=== PATIENT | male | born 1955 | race Caucasian/White ===

== ENCOUNTER 2020-12-25 06:02 | Day surgery (SDC) | payer MEDICARE ==
[2020-12-18 11:54] LABS: ALBUMIN 3.7 G/DL (3.4-5.0); ALBUMIN/GLOBULIN RATIO 1.1 (1.1-1.5); ALKALINE PHOSPHATASE 85 IU/L (46-116); BLOOD UREA NITROGEN 15 MG/DL (7-18); BUN/CREATININE RATIO 13.6 (5.4-32.0); CALCIUM 8.4 MG/DL (8.5-10.1); CHLORIDE 104 MMOL/L (99-107); PRE OP ALT 23 U/L (30-65); PRE OP ANION GAP 7 (8-16); PRE OP AST 21 U/L (10-37); PRE OP BILIRUB, TOTAL 0.5 MG/DL (0.0-1.0); PRE OP GLUCOSE 94 MG/DL (70-104); PRE OP POTASSIUM 3.9 MMOL/L (3.4-5.1); PRE OP SODIUM 139 MMOL/L (135-145); TOTAL CARBON DIOXIDE 27.6 MMOL/L (24-32); TOTAL PROTEIN 7.2 G/DL (6.4-8.2); eGFR 67 ML/MIN
[2020-12-18 11:59] LABS: BASOPHILS % (AUTO) 0.3 % (0-1); EOSINOPHILS # (AUTO) 0.1 X10'3 (0-0.9); EOSINOPHILS % (AUTO) 1.3 % (0-6); LYMPHOCYTES # (AUTO) 1.7 X10'3 (1.1-4.8); LYMPHOCYTES % (AUTO) 21.9 % (21-51); MEAN CORPUSCULAR HEMOGLOBIN 29.8 PG (27.0-31.0); MEAN CORPUSCULAR VOLUME 90.4 FL (78-98); MEAN PLATELET VOLUME 8.7 FL (7.4-10.4); MONOCYTES # (AUTO) 0.7 X10'3 (0-0.9); MONOCYTES % (AUTO) 8.9 % (2-12); NEUTROPHILS # (AUTO) 5.2 X10'3 (1.8-7.7); NEUTROPHILS % (AUTO) 67.6 % (42-75); PRE OP HEMATOCRIT 47.4 % (42.0-52.0); PRE OP HEMOGLOBIN 15.7 g/dL (14.0-17.9); PRE OP PLATELET COUNT 224 X10'3 (140-440); RED BLOOD COUNT 5.25 X10'6 (4.70-6.10)
[~2020-12-25] VITALS: Ht 180.3 cm; Wt 113.0 kg
[~2020-12-25 06:02] MED LIST: BETA1TAB20 PO; GLUC-221 PO; NAPR220C62 PO; TEST200V10 IM; cefazolin/dext.iso 2gm/100ml 100 ML IV ONE; famotidine 20mg tablet PO ONE; ringers solution, lacted 1,000 ML IV SCH
[2020-12-25] MEDS ORDERED: BUPIVAcaine/PF 2.5 mg/ml (0.25%) 30ml vial ONE (06:43)
[2020-12-25 07:14] VITALS: BP 144/94
[2020-12-25] MEDS ORDERED: hydrALAZINE 20mg/ml inj. IV PRN (08:10)
[2020-12-25] MEDS ORDERED: meperidine/PF 25mg/ml syringe IV PRN ×3 (08:10)
[2020-12-25] MEDS ORDERED: ringers solution, lacted 1,000 ML IV SCH (08:10)
[2020-12-25] MEDS ORDERED: morphine 2 MG/ML inj. syringe IV PRN (08:10)
[2020-12-25] MEDS ORDERED: morphine 4 MG/ML inj SYRINge IV PRN (08:10)
[2020-12-25] MEDS ORDERED: proCHLORperazine 10 MG/2 ml inj IV PRN (08:10)
[2020-12-25] MEDS ORDERED: ondansetron/PF 4mg/2ml inj IV PRN (08:10)
[2020-12-25] MEDS ORDERED: labetalol 20mg/4ml (5mg/ml) syringe IV PRN (08:10)
[2020-12-25] MEDS ORDERED: LIDOcaine 0.5% (5mg/ml) 50ml vial ONE (08:17)
[2020-12-25] MEDS ORDERED: propofol 10mg/ml 20ml vial IV ONE (08:31)
[2020-12-25] MEDS ORDERED: fentaNYL/PF 50MCG/1 ML 2ML syringe ONE (08:38)
[2020-12-25] MEDS ORDERED: midazolam 1 mg/ML 2ml injection ONE (08:50)
[2020-12-25 09:21] VITALS: BP 123/91
--- NOTE | 2020-12-25 09:21 | NUR ---
Received from OR via , accompanied by Anesthesiologist DR ESCOBEDO and report given by Anesthesiolgist. AWAKE AND MACK PAIN. VITALS STABLE. DRESSING DI. FINGERS WARM AND PINK
[2020-12-25 09:31] VITALS: BP 136/92
[2020-12-25 09:41] VITALS: BP 123/95
--- NOTE | 2020-12-25 10:01 | NUR ---
AWAKE AND ORIENTED. VITALS STABLE. DRESSING DI. MACK PAIN. HOME WITH A FRIEND AT THIS TIME.
== END 2020-12-25 10:01 | disposition home or self-care (01) ==
LOC: PAS 06:02
PROVIDERS: ATTEND Orthopaedic Surgery Hand Surgery
DX: G56.01 Carpal tunnel syndrome, right upper limb (principal); M18.0 Bilateral primary osteoarthritis of first carpometacarpal joints; E66.9 Obesity, unspecified; Z68.35 Body mass index [BMI] 35.0-35.9, adult; Z98.890 Other specified postprocedural states; Z98.41 Cataract extraction status, right eye; Z98.42 Cataract extraction status, left eye; Z88.8 Allergy status to other drugs, medicaments and biological substances; Z79.899 Other long term (current) drug therapy; Z72.89 Other problems related to lifestyle
CPT/HCPCS: 36415; 64721; 80053; 82948; 85025; 93005; A6222; J2001; J2250; J3010; J3490; A4215; J2704; J7120

== ENCOUNTER 2021-07-19 13:34 | Emergency (ER) | payer MEDICARE ==
[~2021-07-19] VITALS: Ht 177.8 cm; Wt 108.7 kg
[~2021-07-19 13:34] MED LIST changes: -TEST200V10 IM; +TEST200V33 IM; -cefazolin/dext.iso 2gm/100ml 100 ML IV ONE; -famotidine 20mg tablet PO ONE; -ringers solution, lacted 1,000 ML IV SCH
[2021-07-19 14:52] VITALS: BP 165/110
[2021-07-19 15:25] LABS: BASOPHILS % (AUTO) 0.4 % (0-1); EOSINOPHILS # (AUTO) 0.1 X10'3 (0-0.9); EOSINOPHILS % (AUTO) 0.9 % (0-6); HEMATOCRIT 47.8 % (42.0-52.0); HEMOGLOBIN 16.1 g/dl (14.0-17.9); LYMPHOCYTES # (AUTO) 1.6 X10'3 (1.1-4.8); LYMPHOCYTES % (AUTO) 21.6 % (21-51); MEAN CORPUSCULAR HEMOGLOBIN 31.3 PG (27.0-31.0); MEAN CORPUSCULAR HGB CONC 33.8 g/dL (33.0-36.5); MEAN CORPUSCULAR VOLUME 92.7 FL (78-98); MEAN PLATELET VOLUME 8.1 FL (7.4-10.4); MONOCYTES # (AUTO) 0.7 X10'3 (0-0.9); MONOCYTES % (AUTO) 9.9 % (2-12); NEUTROPHILS % (AUTO) 67.2 % (42-75); PLATELET COUNT 260 X10'3 (140-440); RED BLOOD COUNT 5.15 X10'6 (4.70-6.10); RED CELL DISTRIBUTION WIDTH 13.7 % (11.5-14.5); WHITE BLOOD COUNT 7.5 X10'3 (4.5-11.0)
[2021-07-19 15:37] LABS: ALANINE AMINOTRANSFERASE 29 U/L (12-78); ALBUMIN 3.6 G/DL (3.4-5.0); ALBUMIN/GLOBULIN RATIO 0.9 (1.1-1.5); ALKALINE PHOSPHATASE 71 IU/L (46-116); ANION GAP 8 (8-16); ASPARTATE AMINO TRANSFERASE 18 U/L (10-37); BILIRUBIN,TOTAL 0.7 MG/DL (0.1-1.0); BLOOD UREA NITROGEN 14 MG/DL (7-18); BUN/CREATININE RATIO 12.4 (5.4-32.0); CALCIUM 8.7 MG/DL (8.5-10.1); CHLORIDE 101 MMOL/L (99-107); CREATININE 1.13 MG/DL (0.60-1.10); GLUCOSE 96 MG/DL (70-104); POTASSIUM 3.7 MMOL/L (3.5-5.1); SODIUM 137 MMOL/L (135-145); TOTAL CARBON DIOXIDE 28.3 MMOL/L (24-32); TOTAL PROTEIN 7.6 G/DL (6.4-8.2); eGFR 65 ML/MIN
== END 2021-07-19 17:12 | disposition left against medical advice (07) ==
LOC: ER 13:35
DX: I10 Essential (primary) hypertension (principal); Z88.6 Allergy status to analgesic agent; Z88.5 Allergy status to narcotic agent; Z79.899 Other long term (current) drug therapy; Z53.21 Procedure and treatment not carried out due to patient leaving prior to being seen by health care provider
CPT/HCPCS: 36415; 71045; 80053; 83880; 84484; 85025; 93005

== ENCOUNTER 2022-04-30 08:04 | Inpatient (IN) | payer MEDICARE ==
[2022-04-24 14:57] LABS: BASOPHILS % (AUTO) 0.6 % (0-1); EOSINOPHILS # (AUTO) 0.2 X10'3 (0-0.9); EOSINOPHILS % (AUTO) 2.9 % (0-6); LYMPHOCYTES # (AUTO) 1.1 X10'3 (1.1-4.8); LYMPHOCYTES % (AUTO) 16.8 % (21-51); MEAN CORPUSCULAR HEMOGLOBIN 30.8 PG (27.0-31.0); MEAN CORPUSCULAR HGB CONC 34.3 g/dL (33.0-36.5); MEAN CORPUSCULAR VOLUME 89.9 FL (78-98); MONOCYTES # (AUTO) 0.7 X10'3 (0-0.9); NEUTROPHILS # (AUTO) 4.4 X10'3 (1.8-7.7); NEUTROPHILS % (AUTO) 68.7 % (42-75); PRE OP HEMATOCRIT 46.1 % (42.0-52.0); PRE OP HEMOGLOBIN 15.8 g/dL (14.0-17.9); PRE OP PLATELET COUNT 279 X10'3 (140-440); RED BLOOD COUNT 5.13 X10'6 (4.70-6.10); RED CELL DISTRIBUTION WIDTH 13.3 % (11.5-14.5)
[2022-04-24 15:13] LABS: ALBUMIN 3.5 G/DL (3.4-5.0); ALBUMIN/GLOBULIN RATIO 0.9 (1.1-1.5); ALKALINE PHOSPHATASE 71 IU/L (46-116); BLOOD UREA NITROGEN 17 MG/DL (7-18); CALCIUM 8.8 MG/DL (8.5-10.1); CHLORIDE 104 MMOL/L (99-107); CREATININE 1.13 MG/DL (0.60-1.10); PRE OP ALT 26 U/L (30-65); PRE OP ANION GAP 10 (8-16); PRE OP AST 16 U/L (10-37); PRE OP BILIRUB, TOTAL 0.2 MG/DL (0.0-1.0); PRE OP GLUCOSE 93 MG/DL (70-104); PRE OP POTASSIUM 4.2 MMOL/L (3.4-5.1); PRE OP SODIUM 140 MMOL/L (135-145); TOTAL CARBON DIOXIDE 26.5 MMOL/L (24-32); TOTAL PROTEIN 7.6 G/DL (6.4-8.2); eGFR 65 ML/MIN
[~2022-04-30] VITALS: Ht 180.3 cm; Wt 108.0 kg
[2022-04-30] VITALS (18 sets, daily range): BP systolic 112–155; BP diastolic 62–103
[2022-04-30] MEDS: potassium cl 20mEq in 1/2 NS 1,000 ML IV SCH ×3 (07:15→23:15)
[~2022-04-30 08:04] MED LIST changes: +HYDROmorphone 1 mg/ml syringe IV PRN; +HYDROmorphone inj. 0.5 MG/0.5 ML DISP.SYRIN IV PRN; +acetaminophen 325mg tablet PO ONE; +acetaminophen 325mg tablet PO PRN; +ascorbic acid 500mg tablet PO SCH; +bisacodyl 10mg suppository rectal RC PRN; +ceFAZolin inj. 2,000 MG in dextrose 5%-water 100 ML IV ONE; +celeCOXIB 100mg capsule PO ONE; +diphenhydrAMINE 25mg capsule PO PRN; +famotidine 20mg tablet PO ONE; +gabapentin 300mg capsule PO ONE; +gabapentin 300mg capsule PO SCH; +magnesium hydroxide 30ml (MOM) UD suspension PO PRN; +metoclopramide 5 mg/ml inj IV ONE; +multivitamins, therapeutics tablet PO SCH; +naloxone 0.4 mg/ml inj IV PRN; +ondansetron/PF 4mg/2ml inj IV PRN; +oxyCODONE SR 10mg (sust. release) tab -2 tabs (20mg) PO ONE; +oxyCODONE/APAP 10/325mg tablet PO PRN; +ringers solution, lacted 1,000 ML IV SCH; +tranexamic acid inj. 1,000 MG in 0.7% saline 100 ML PMX IV ONE; +vancomycin 1,500 MG in NS 300ml IV soln IV ONE
--- NOTE | 2022-04-30 08:10 | NUR ---
TOTAL JOINT CHARTING: [facility] WNL. RIGHT DORSAL PEDALIS PULSE STRONG AND MARKED. PT DENIED WATCHING THE VIDEO-DIDN'T THINK HE NEEDED TO, HOWEVER DID READ THROUGH THE BOOKLET. DR DOUGHERTY DID NOT CALL OINTMENT TO PHARM FOR PT USE. PT COMPLETED 5 DAILY HIBICLENS SHOWERS PREOP.
[2022-04-30] MEDS ORDERED: aspirin 325mg tablet PO SCH (08:30)
[2022-04-30] MEDS ORDERED: ketorolac trometh. 30mg/ml inj. ONE (10:42)
[2022-04-30] MEDS ORDERED: epiNEPHrine 1 mg/ml inj ONE (10:42)
[2022-04-30] MEDS ORDERED: vancomycin 1,000mg inj ONE (10:43)
[2022-04-30] MEDS ORDERED: ROPIVAcaine 0.5% (5mg/ml) 30ml vial ONE ×2 (10:43→12:04)
[2022-04-30] MEDS ORDERED: cloNIDine hcl/PF 100mcg/ml inj ONE (10:43)
[2022-04-30] MEDS ORDERED: fentaNYL/PF 50MCG/1 ML 2ML syringe ONE (10:48)
[2022-04-30] MEDS ORDERED: MIDAZolam 1 MG/ML 5ML VIAL ONE (10:48)
[2022-04-30] MEDS ORDERED: ROPIVAcaine 0.2% (10 MG/5 ML) BOLUS INJECTION ADDCANAL PRN (11:55)
[2022-04-30] MEDS ORDERED: proCHLORperazine 10 MG/2 ml inj IV PRN (11:55)
[2022-04-30] MEDS ORDERED: ROPIVAcaine 0.2%/PF PUMP/bolus 545 ML ADDCANAL SCH (11:55)
[2022-04-30] MEDS ORDERED: ringers solution, lacted 1,000 ML IV SCH (11:55)
[2022-04-30] MEDS ORDERED: ondansetron/PF 4mg/2ml inj IV PRN (11:55)
[2022-04-30] MEDS ORDERED: morphine 4 MG/ML inj SYRINge IV PRN (11:55)
[2022-04-30] MEDS ORDERED: meperidine/PF 25mg/ml syringe IV PRN ×3 (11:55)
[2022-04-30] MEDS ORDERED: morphine 2 MG/ML inj. syringe IV PRN (11:55)
[2022-04-30] MEDS ORDERED: ROPIVAcaine 0.5% (5mg/ml) 30ml vial IJ ONE (12:14)
[2022-04-30] MEDS ORDERED: glycopyrrolate 0.2mg/ml inj ONE (12:54)
[2022-04-30] MEDS ORDERED: propofol inj 20 ML IV ONE (12:54)
[2022-04-30] MEDS ORDERED: ePHEDrine 50MG/ML INJ. ONE (12:54)
[2022-04-30] MEDS ORDERED: dexamethasone sod phosphate 4mg/ml inj. ONE (12:54)
--- NOTE | 2022-04-30 12:56 | NUR ---
Received from OR via BED IN STABLE CONDITION , accompanied by Anesthesiologist and ULTRASOUND TESTER report given by ULTRASOUND TESTER AND Anesthesiolgist. Addendum: 04/30/22 at 1311 by Eleonora Bartholomew RN Amended: Links added.
[2022-04-30] MEDS: gabapentin 300mg capsule PO SCH ×2 (13:00→21:24)
--- NOTE | 2022-04-30 13:00 | NUR ---
DERMATOME LEVEL S2. Addendum: 04/30/22 at 1324 by Eleonora Bartholomew RN Amended: Links added.
[2022-04-30] MEDS: oxyCODONE/APAP 10/325mg tablet PO PRN ×2 (13:20→19:23)
--- NOTE | 2022-04-30 14:16 | NUR ---
PATIENT DISCHARGED FROM PACU IN STABLE CONDITION AFTER REPORT GIVEN TO RN TAKING OVER PATIENTS CARE. PATIENT TRANSFERRED TO ROOM [facility] VIA BED WITH RNX2. Addendum: 04/30/22 at 1431 by Eleonora Bartholomew RN Amended: Links added.
[2022-04-30] MEDS ORDERED: tranexamic acid inj. 1,100 MG in normal saline 100ml IV soln 89 ML IV ONE (16:00)
[2022-04-30] MEDS: cefazolin/dext.iso 2gm/100ml 100 ML IV SCH (17:27)
--- NOTE | 2022-04-30 18:30 | NUR ---
Report to December RN
[2022-04-30] MEDS ORDERED: sennosides 8.6mg tablet PO SCH (21:00)
[2022-04-30] MEDS: ascorbic acid 500mg tablet PO SCH (21:24)
[2022-04-30] MEDS ORDERED: VANCOMYCIN 1,500MG inj. 1,500 MG in normal saline 500ml IV soln 300 ML IV ONE (23:00)
[2022-05-01] MEDS: oxyCODONE/APAP 10/325mg tablet PO PRN ×2 (00:48→09:26)
[2022-05-01] MEDS: cefazolin/dext.iso 2gm/100ml 100 ML IV SCH (00:48)
[2022-05-01 02:00] VITALS: BP 113/61
[2022-05-01] MEDS: potassium cl 20mEq in 1/2 NS 1,000 ML IV SCH (05:05)
[2022-05-01 06:00] VITALS: BP 134/88
--- NOTE | 2022-05-01 06:00 | NUR ---
Patient in room ORTHO 4015. I have received report from December and had the opportunity to ask questions and assume patient care.
[2022-05-01 06:08] LABS: ANION GAP 6 (8-16); CHLORIDE 106 MMOL/L (99-107); POTASSIUM 3.9 MMOL/L (3.5-5.1); SODIUM 136 MMOL/L (135-145); TOTAL CARBON DIOXIDE 23.8 MMOL/L (24-32)
[2022-05-01 06:12] LABS: BASOPHILS % (AUTO) 0.2 % (0-1); EOSINOPHILS % (AUTO) 0.3 % (0-6); HEMATOCRIT 41.3 % (42.0-52.0); LYMPHOCYTES # (AUTO) 1.4 X10'3 (1.1-4.8); MEAN CORPUSCULAR HEMOGLOBIN 30.3 PG (27.0-31.0); MEAN CORPUSCULAR HGB CONC 33.8 g/dL (33.0-36.5); MEAN CORPUSCULAR VOLUME 89.5 FL (78-98); MEAN PLATELET VOLUME 8.3 FL (7.4-10.4); MONOCYTES # (AUTO) 0.8 X10'3 (0-0.9); MONOCYTES % (AUTO) 7.4 % (2-12); NEUTROPHILS # (AUTO) 8.4 X10'3 (1.8-7.7); NEUTROPHILS % (AUTO) 79.1 % (42-75); PLATELET COUNT 253 X10'3 (140-440); RED BLOOD COUNT 4.62 X10'6 (4.70-6.10); RED CELL DISTRIBUTION WIDTH 13.2 % (11.5-14.5); WHITE BLOOD COUNT 10.6 X10'3 (4.5-11.0)
[2022-05-01] MEDS ORDERED: multivitamins, therapeutics tablet PO SCH (08:00)
[2022-05-01] MEDS ORDERED: aspirin 325mg tablet PO SCH (08:30)
[2022-05-01] MEDS: gabapentin 300mg capsule PO SCH (09:24)
[2022-05-01] MEDS: ascorbic acid 500mg tablet PO SCH (09:25)
[2022-05-01 10:00] VITALS: BP 118/67
--- NOTE | 2022-05-01 12:28 | NUR ---
Joint Surgery Consult: Pt s/p R knee surgery this admit per EMR. Pt/SO seen by RD at bedside for written/verbal high protein diet ed w/ RD contact information provided. TATYANA encouraged pt to contact dietitian's office if further questions/concerns. Addendum: 05/01/22 at [address] Amended: Links added.
--- NOTE | 2022-05-01 14:54 | NUR ---
Reviewed discharge instructions with pt. Pt verbalized understanding. Pt was dressed and all personal belongings were placed in pt bag. Pt's On-Q pump was changed immediately prior to discharge. Reviewed On-Q pump DC instructions and YONG dressing discharge instructions. Pt was wheeled downstairs to be driven home by his spouse.
[2022-05-01] MEDS ORDERED: celeCOXIB 100mg capsule PO SCH (20:00)
== END 2022-05-01 13:55 | disposition home or self-care (01) | DRG 470 ==
LOC: PAS 08:04 → ORTHO 4S 08:05
PROVIDERS: ADMIT Orthopaedic Surgery; ATTEND Orthopaedic Surgery
PROC: 0SRC0J9 Replacement of Right Knee Joint with Synthetic Substitute, Cemented, Open Approach (ICD-10-PCS; principal; 2022-04-30 11:05)
DX: M17.11 Unilateral primary osteoarthritis, right knee (principal); Z79.899 Other long term (current) drug therapy
CPT/HCPCS: 36415; 73560; 80051; 80053; 82948; 85025; 86885; 86900; 86901; 87081; 87811; 97116; 97162; A4215; A4314; A6449; A7000; C1713; C1776; G0378; J0171; J0690; J0735; J1100; J1885; J2250; J2704; J2765; J2795; J3010; J3370; J3480; J3490; J7040; J7060; J7120